=== PATIENT | female | born 1975 | race Caucasian/White ===

== ENCOUNTER → 2020-11-30 | Outpatient (REF) ==
[~2020-11-30] MED LIST: ADVAIR DISKUS1 DS1 IH; ALBUTEROL2.5 MG/3 M IH; AMERINET CHOICE1 PD2 IJ; BUMETANIDE2 M1 PO; CEFTRIAXON1 GM/50 M1 PO; CHANTIX 1MG1 MG PO; CYCLOBENZAPRINE10 M1 PO; DAILY VALUE1 EACH PO; DEPAKOTE ER 50500 MG PO; DESVENLAFAXINE50 M3 PO; DOCUSATE SODIU1 EACH PO; DULCOLAX S10 MG/SUPP RC; EMGALITY120 MG/1 M SQ; FEOSOL325 MG PO; FUROSEMIDE40 MG PO; GABAPENTIN100 MG PO; GLUCOPHAGE1000 MG PO; GOOD NEIGH1200 MG/15 PO; GOOD NEIGHBOR M25 M1 PO; HYDROCORTISON28.4 GM TP; IMITREX ST4 MG/0.5 M SQ; IMITREX100 M1 PO; LAMICTAL150 MG PO; LANSOPRAZOLE30 MG PO; LEADER EYE ITCH5 ML OP; LOPRESSOR 225 MG/TAB PO; MELATIN 3 MG-11 TAB PO; METAMUCIL3.4 GM/Dos PO; METFORMIN ER500 MG PO; MIRALAX17 GM PO; MULTI-VITAMIN1 EACH PO; NATURE'S BLEND500 M6 PO; NEURONTIN100 M1 PO; NORCO 10-325 T1 EACH PO; NORCO 325 MG-7.1 TA1 PO; NOVOLOG 100U100 U/ML SQ; ONDANSETRON ODT8 MG PO; PAIN RELIEF1 EACH TOP; PREDNISONE 5MG5 MG PO; PREDNISONE10 MG PO; PRISTIQ ER25 MG PO; PROAIR HFA0.09 MG/AC IH; PROZAC20 M1 PO; QUETIAPINE FUMA25 M3 PO; QUETIAPINE FUMA50 MG PO; REMERON15 MG PO; ROXICODONE5 M1 PO; RT SPIRIVA INH18 MCG IH; Remove Patch TD; SINGULAIR PO; TYLENOL 325MG325 MG PO; UBRELVY50 MG PO; VITAMIN C500 MG PO; XARELTO10 MG PO; ZINC OXIDE60 GM TOP; ZOFRAN4 M2 PO; ZYRTEC10 M3 PO
== END ==
LOC: LAB 16:05
DX: Z01.89 Encounter for other specified special examinations (principal)

== ENCOUNTER 2020-12-11 14:40 | Inpatient (IN) | payer MEDICAID ==
[~2020-12-11] VITALS: Ht 157.5 cm; Wt 137.9 kg
[~2020-12-11 14:40] MED LIST changes: -AMERINET CHOICE1 PD2 IJ; -HYDROCORTISON28.4 GM TP; -METFORMIN ER500 MG PO; -Remove Patch TD; -ZINC OXIDE60 GM TOP
[2020-12-11 16:26] VITALS: BP 123/76
[2020-12-11] MEDS ORDERED: AMERINET CHOICE1 PD2 IJ (17:16)
[2020-12-11] MEDS ORDERED: SINGULAIR PO (17:17)
[2020-12-11] MEDS ORDERED: REMERON15 MG PO (17:21)
[2020-12-11 17:24] VITALS: BP 123/76
[2020-12-11 17:36] VITALS: BP 123/76
[2020-12-11] MEDS ORDERED: LOPRESSOR 225 MG/TAB PO (17:57)
[2020-12-12 06:16] VITALS: BP 116/76
[2020-12-12 17:27] VITALS: BP 128/88
[2020-12-13 05:56] VITALS: BP 130/85
[2020-12-13 17:34] VITALS: BP 114/75
[2020-12-14 06:10] VITALS: BP 102/67
[2020-12-14 16:43] VITALS: BP 122/72
[2020-12-15 06:24] VITALS: BP 129/78
[2020-12-15 07:21] LABS: HEMATOCRIT 27.2 % (37.0-47.0); HEMOGLOBIN 8.1 g/dL (12.5-16.0); MEAN CELL VOLUME 95 fl (78-100); MEAN CORPUSCULAR HEMOGLOBIN 28 pg (27-31); MEAN CORPUSCULAR HGB CONC 30 g/dL (33-37); MEAN PLATELET VOLUME 8.8 fl (7.4-10.4); PLATELET COUNT 462 K/mm3 (130-400); RED BLOOD COUNT 2.85 M/mm3 (4.10-5.30); RED CELL DISTRIBUTION WIDTH 19.1 % (11.5-14.5); WHITE BLOOD COUNT 11.7 K/mm3 (4.8-10.8)
[2020-12-15 07:52] LABS: ALBUMIN 3.1 g/dL (3.5-5.0)
[2020-12-15 07:53] LABS: POTASSIUM 3.7 mmol/L (3.5-5.1)
[2020-12-15 07:55] LABS: TOTAL PROTEIN 6.2 g/dL (6.4-8.3)
[2020-12-15 07:57] LABS: TOTAL BILIRUBIN 0.2 mg/dL (0.2-1.2)
[2020-12-15 08:31] LABS: LYMPHOCYTE 20 % (20-51); MONOCYTE 6 % (3-10); NEUTROPHILS 69 % (42-75)
[2020-12-15 08:32] LABS: OVALOCYTES 1+
[2020-12-15 08:49] LABS: ERYTHROCYTE SEDIMENTATION RATE 75 mm/hr (0-20)
[2020-12-15 16:30] VITALS: BP 95/57
[2020-12-16 06:02] VITALS: BP 110/75
[2020-12-16 17:25] VITALS: BP 118/81
[2020-12-17 06:24] VITALS: BP 99/67
[2020-12-17 16:23] VITALS: BP 105/70
[2020-12-18 05:39] VITALS: BP 116/77
[2020-12-18 06:59] LABS: BASO # 0.02 (0.02-0.10); EOS # 0.47 (0.04-0.40); EOS % 4.8 % (1.0-5.0); HEMATOCRIT 23.4 % (37.0-47.0); LYMPH# 2.45 (1.50-4.00); MEAN CELL VOLUME 96 fl (78-100); MEAN CORPUSCULAR HEMOGLOBIN 28 pg (27-31); MEAN CORPUSCULAR HGB CONC 30 g/dL (33-37); MONO # 0.97 (0.20-0.80); NEU # 5.73 (1.40-6.50); PLATELET COUNT 434 K/mm3 (130-400); RED BLOOD COUNT 2.44 M/mm3 (4.10-5.30); RED CELL DISTRIBUTION WIDTH 18.9 % (11.5-14.5); WHITE BLOOD COUNT 9.7 K/mm3 (4.8-10.8)
[2020-12-18 07:13] LABS: HEMOGLOBIN 6.9 g/dL (12.5-16.0)
[2020-12-18 14:27] VITALS: BP 118/82
[2020-12-18 14:55] VITALS: BP 126/92
[2020-12-18 17:48] VITALS: BP 126/92
[2020-12-19 05:44] VITALS: BP 109/74
[2020-12-19 08:20] LABS: HEMATOCRIT 30.9 % (37.0-47.0)
[2020-12-19 14:26] VITALS: BP 114/74
[2020-12-19 16:06] LABS: FOLATE (FOLIC ACID) 16.7 ng/mL (2.0-20.0)
[2020-12-19 17:05] LABS: TRANSFERRIN 240 mg/dL (180-382)
[2020-12-19 17:37] LABS: HAPTOGLOBIN 334 mg/dL (35-250)
[2020-12-20 05:58] VITALS: BP 134/85
[2020-12-20 17:15] VITALS: BP 126/83
[2020-12-21 06:17] VITALS: BP 132/81
[2020-12-21 17:01] VITALS: BP 118/79
[2020-12-22 05:36] VITALS: BP 112/71
[2020-12-22 09:35] LABS: KAPPA LAMBDA RATIO 1.65 ratio (())
[2020-12-22 11:59] LABS: BASO # 0.06 (0.02-0.10); EOS # 0.65 (0.04-0.40); EOS % 4.8 % (1.0-5.0); HEMATOCRIT 34.4 % (37.0-47.0); HEMOGLOBIN 9.9 g/dL (12.5-16.0); LYMPH# 2.14 (1.50-4.00); MEAN CELL VOLUME 96 fl (78-100); MEAN CORPUSCULAR HEMOGLOBIN 28 pg (27-31); MEAN CORPUSCULAR HGB CONC 29 g/dL (33-37); MEAN PLATELET VOLUME 8.7 fl (7.4-10.4); MONO # 1.17 (0.20-0.80); PLATELET COUNT 640 K/mm3 (130-400); RED CELL DISTRIBUTION WIDTH 18.7 % (11.5-14.5); WHITE BLOOD COUNT 13.6 K/mm3 (4.8-10.8)
[2020-12-22 12:05] LABS: ALBUMIN 3.7 g/dL (3.5-5.0); POTASSIUM 3.9 mmol/L (3.5-5.1)
[2020-12-22 12:06] LABS: CALCIUM 10.1 mg/dL (8.3-10.5)
[2020-12-22 12:07] LABS: TOTAL PROTEIN 7.4 g/dL (6.4-8.3)
[2020-12-22 12:09] LABS: TOTAL BILIRUBIN 0.3 mg/dL (0.2-1.2)
[2020-12-22 13:53] LABS: ERYTHROCYTE SEDIMENTATION RATE 112 mm/hr (0-20)
[2020-12-22 14:40] LABS: URINE APPEARANCE CLEAR; URINE BILIRUBIN NEGATIVE (NEGATIVE); URINE BLOOD NEGATIVE (NEGATIVE); URINE COLOR YELLOW; URINE GLUCOSE NEGATIVE (NEGATIVE); URINE KETONE NEGATIVE (NEGATIVE); URINE NITRATE NEGATIVE (NEGATIVE); URINE PROTEIN(semi-quant) NEGATIVE (NEGATIVE); URINE UROBILINOGEN NORMAL (NORMAL)
[2020-12-22 14:41] LABS: URINE LEUKOCYTE ESTERASE TRACE (NEGATIVE)
[2020-12-22 18:56] VITALS: BP 117/75
[2020-12-23 05:40] VITALS: BP 111/76
[2020-12-23 09:20] LABS: BASO # 0.04 (0.02-0.10); EOS # 0.65 (0.04-0.40); EOS % 6.3 % (1.0-5.0); HEMATOCRIT 30.7 % (37.0-47.0); MEAN CELL VOLUME 95 fl (78-100); MEAN CORPUSCULAR HEMOGLOBIN 28 pg (27-31); MEAN CORPUSCULAR HGB CONC 29 g/dL (33-37); MEAN PLATELET VOLUME 8.4 fl (7.4-10.4); MONO # 0.92 (0.20-0.80); NEU # 5.92 (1.40-6.50); RED BLOOD COUNT 3.25 M/mm3 (4.10-5.30); RED CELL DISTRIBUTION WIDTH 18.5 % (11.5-14.5); WHITE BLOOD COUNT 10.2 K/mm3 (4.8-10.8)
[2020-12-23 09:23] LABS: PLATELET COUNT 540 K/mm3 (130-400)
[2020-12-23 09:26] LABS: ALBUMIN 3.2 g/dL (3.5-5.0)
[2020-12-23 09:27] LABS: POTASSIUM 3.5 mmol/L (3.5-5.1)
[2020-12-23 09:28] LABS: CALCIUM 9.3 mg/dL (8.3-10.5)
[2020-12-23 09:29] LABS: TOTAL PROTEIN 6.3 g/dL (6.4-8.3)
[2020-12-23 09:31] LABS: TOTAL BILIRUBIN 0.2 mg/dL (0.2-1.2)
[2020-12-23 17:02] VITALS: BP 124/85
[2020-12-24 06:18] VITALS: BP 132/85
[2020-12-24 11:01] LABS: ALPHA 1 GLOBULINS (IEP) 0.3 g/dL (0.1-0.3); ALPHA 2 GLOBULINS (IEP) 1.1 g/dL (0.6-1.0)
[2020-12-24 17:23] VITALS: BP 127/84
[2020-12-25 06:23] VITALS: BP 114/76
[2020-12-25 17:14] VITALS: BP 106/69
[2020-12-26 06:23] VITALS: BP 113/74
[2020-12-26 16:57] VITALS: BP 113/74
[2020-12-27 06:24] VITALS: BP 118/80
[2020-12-27 17:16] VITALS: BP 121/79
[2020-12-28 06:22] VITALS: BP 15/72
[2020-12-28 17:33] VITALS: BP 194/100
[2020-12-28 17:49] VITALS: BP 122/58
[2020-12-29 06:12] VITALS: BP 100/65
[2020-12-29 07:09] LABS: BASO # 0.04 (0.02-0.10); EOS # 0.51 (0.04-0.40); EOS % 4.5 % (1.0-5.0); HEMATOCRIT 32.4 % (37.0-47.0); HEMOGLOBIN 9.2 g/dL (12.5-16.0); LYMPH# 3.07 (1.50-4.00); MEAN CELL VOLUME 97 fl (78-100); MEAN CORPUSCULAR HEMOGLOBIN 28 pg (27-31); MEAN CORPUSCULAR HGB CONC 28 g/dL (33-37); MEAN PLATELET VOLUME 8.7 fl (7.4-10.4); MONO # 1.18 (0.20-0.80); NEU # 6.53 (1.40-6.50); RED BLOOD COUNT 3.35 M/mm3 (4.10-5.30); RED CELL DISTRIBUTION WIDTH 18.3 % (11.5-14.5); WHITE BLOOD COUNT 11.4 K/mm3 (4.8-10.8)
[2020-12-29 07:27] LABS: PLATELET COUNT 524 K/mm3 (130-400)
[2020-12-29 07:40] LABS: ALBUMIN 3.3 g/dL (3.5-5.0); POTASSIUM 4.2 mmol/L (3.5-5.1)
[2020-12-29 07:41] LABS: CALCIUM 9.1 mg/dL (8.3-10.5)
[2020-12-29 07:43] LABS: TOTAL PROTEIN 6.4 g/dL (6.4-8.3)
[2020-12-29 07:52] LABS: TOTAL BILIRUBIN 0.1 mg/dL (0.2-1.2)
[2020-12-29 08:15] LABS: ERYTHROCYTE SEDIMENTATION RATE 58 mm/hr (0-20)
[2020-12-29 08:30] VITALS: BP 119/84
[2020-12-29 17:15] VITALS: BP 116/69
[2020-12-30 06:14] VITALS: BP 123/78
[2020-12-30 07:26] LABS: BASO # 0.03 (0.02-0.10); EOS # 0.48 (0.04-0.40); EOS % 4.6 % (1.0-5.0); HEMATOCRIT 30.3 % (37.0-47.0); HEMOGLOBIN 8.9 g/dL (12.5-16.0); MEAN CELL VOLUME 95 fl (78-100); MEAN CORPUSCULAR HEMOGLOBIN 28 pg (27-31); MEAN CORPUSCULAR HGB CONC 29 g/dL (33-37); MEAN PLATELET VOLUME 8.9 fl (7.4-10.4); MONO # 0.97 (0.20-0.80); NEU # 5.84 (1.40-6.50); PLATELET COUNT 401 K/mm3 (130-400); RED BLOOD COUNT 3.18 M/mm3 (4.10-5.30); RED CELL DISTRIBUTION WIDTH 18.3 % (11.5-14.5); WHITE BLOOD COUNT 10.5 K/mm3 (4.8-10.8)
[2020-12-30 07:35] LABS: ALBUMIN 3.2 g/dL (3.5-5.0); POTASSIUM 4.1 mmol/L (3.5-5.1)
[2020-12-30 07:36] LABS: CALCIUM 9.4 mg/dL (8.3-10.5)
[2020-12-30 07:37] LABS: TOTAL PROTEIN 6.3 g/dL (6.4-8.3)
[2020-12-30 07:39] LABS: TOTAL BILIRUBIN 0.2 mg/dL (0.2-1.2)
[2020-12-30 09:54] VITALS: BP 119/77
[2020-12-30 17:03] VITALS: BP 124/79
[2020-12-31 06:18] VITALS: BP 122/84
[2020-12-31 17:38] VITALS: BP 119/78
[2021-01-01 06:11] VITALS: BP 140/71
[2021-01-01 17:04] VITALS: BP 121/79
[2021-01-02 06:01] VITALS: BP 104/63
[2021-01-02 17:15] VITALS: BP 100/70
[2021-01-03 06:10] VITALS: BP 124/74
[2021-01-03 17:52] VITALS: BP 113/66
[2021-01-04 06:01] VITALS: BP 110/67
[2021-01-04 17:03] VITALS: BP 114/70
[2021-01-05 06:22] VITALS: BP 103/55
[2021-01-05 17:32] VITALS: BP 115/74
[2021-01-06 06:05] VITALS: BP 105/67
[2021-01-06 07:56] LABS: BASO # 0.03 (0.02-0.10); EOS % 4.4 % (1.0-5.0); HEMATOCRIT 31.4 % (37.0-47.0); HEMOGLOBIN 9.3 g/dL (12.5-16.0); LYMPH# 2.98 (1.50-4.00); MEAN CELL VOLUME 93 fl (78-100); MEAN CORPUSCULAR HEMOGLOBIN 28 pg (27-31); MEAN CORPUSCULAR HGB CONC 30 g/dL (33-37); MEAN PLATELET VOLUME 8.9 fl (7.4-10.4); MONO # 1.12 (0.20-0.80); PLATELET COUNT 460 K/mm3 (130-400); RED BLOOD COUNT 3.38 M/mm3 (4.10-5.30); RED CELL DISTRIBUTION WIDTH 18.1 % (11.5-14.5); WHITE BLOOD COUNT 11.4 K/mm3 (4.8-10.8)
[2021-01-06 08:07] LABS: ALBUMIN 3.2 g/dL (3.5-5.0)
[2021-01-06 08:09] LABS: CALCIUM 9.3 mg/dL (8.3-10.5)
[2021-01-06 08:10] LABS: TOTAL PROTEIN 6.3 g/dL (6.4-8.3)
[2021-01-06 08:12] LABS: TOTAL BILIRUBIN 0.2 mg/dL (0.2-1.2)
[2021-01-06 09:16] LABS: ERYTHROCYTE SEDIMENTATION RATE 65 mm/hr (0-20)
[2021-01-06 17:18] VITALS: BP 134/78
[2021-01-07 06:39] VITALS: BP 127/81
[2021-01-07 17:07] VITALS: BP 129/85
[2021-01-08 06:03] VITALS: BP 112/75
[2021-01-08 17:34] VITALS: BP 123/78
[2021-01-09 05:47] VITALS: BP 117/78
[2021-01-09 17:09] VITALS: BP 112/68
[2021-01-10 06:00] VITALS: BP 117/78
[2021-01-10 17:20] VITALS: BP 108/75
[2021-01-11 06:48] VITALS: BP 118/82
[2021-01-11 17:24] VITALS: BP 130/84
[2021-01-12 06:27] VITALS: BP 99/65
[2021-01-12 11:14] LABS: BASO # 0.03 (0.02-0.10); EOS # 0.47 (0.04-0.40); EOS % 3.8 % (1.0-5.0); HEMATOCRIT 33.9 % (37.0-47.0); LYMPH# 2.51 (1.50-4.00); MEAN CELL VOLUME 93 fl (78-100); MEAN CORPUSCULAR HEMOGLOBIN 28 pg (27-31); MEAN CORPUSCULAR HGB CONC 30 g/dL (33-37); MEAN PLATELET VOLUME 9.1 fl (7.4-10.4); MONO # 1.12 (0.20-0.80); PLATELET COUNT 549 K/mm3 (130-400); RED BLOOD COUNT 3.64 M/mm3 (4.10-5.30); RED CELL DISTRIBUTION WIDTH 18.1 % (11.5-14.5); WHITE BLOOD COUNT 12.3 K/mm3 (4.8-10.8)
[2021-01-12 11:16] LABS: ALBUMIN 3.4 g/dL (3.5-5.0); POTASSIUM 4.1 mmol/L (3.5-5.1)
[2021-01-12 11:17] LABS: CALCIUM 9.7 mg/dL (8.3-10.5)
[2021-01-12 11:19] LABS: TOTAL PROTEIN 6.9 g/dL (6.4-8.3)
[2021-01-12 11:21] LABS: TOTAL BILIRUBIN 0.2 mg/dL (0.2-1.2)
[2021-01-12 17:02] VITALS: BP 131/79
[2021-01-13 06:26] VITALS: BP 119/76
[2021-01-13 17:14] VITALS: BP 101/68
[2021-01-14 06:13] VITALS: BP 121/79
[2021-01-14 17:55] VITALS: BP 121/77
[2021-01-15 06:09] VITALS: BP 116/77
[2021-01-15] MEDS ORDERED: METFORMIN ER500 MG PO (11:11)
[2021-01-15] MEDS ORDERED: HYDROCORTISON28.4 GM TP (11:11)
[2021-01-15] MEDS ORDERED: Remove Patch TD (11:11)
[2021-01-15] MEDS ORDERED: ZINC OXIDE60 GM TOP (11:11)
[2021-01-15 17:22] VITALS: BP 126/81
[2021-01-16 05:21] VITALS: BP 125/80
== END 2021-01-16 10:08 | disposition home or self-care (01) | DRG 560 ==
LOC: MED/SURG 14:40
PROVIDERS: Family Medicine; Internal Medicine; Nurse Practitioner; Nurse Practitioner Family; ADMIT Physician Assistant
DX: T84.51XA Infection and inflammatory reaction due to internal right hip prosthesis, initial encounter (principal); Z68.43 Body mass index [BMI] 50.0-59.9, adult; J44.9 Chronic obstructive pulmonary disease, unspecified; G47.33 Obstructive sleep apnea (adult) (pediatric); M79.7 Fibromyalgia; F31.9 Bipolar disorder, unspecified; R33.9 Retention of urine, unspecified; D47.3 Essential (hemorrhagic) thrombocythemia; F20.9 Schizophrenia, unspecified; F41.9 Anxiety disorder, unspecified; K59.09 Other constipation; E66.01 Morbid (severe) obesity due to excess calories; R53.81 Other malaise; Z79.891 Long term (current) use of opiate analgesic; Z79.01 Long term (current) use of anticoagulants; Z79.4 Long term (current) use of insulin; Z90.710 Acquired absence of both cervix and uterus; D50.9 Iron deficiency anemia, unspecified
CPT/HCPCS: J0295; J0696; J1644; J2997; J7512